=== PATIENT | male | born 1965 | race Caucasian/White ===

== ENCOUNTER → 2017-05-25 | Outpatient (CLI) | payer OTHER ==
[~2017-05-25] MED LIST: ATOR20TA PO; CALC-112 PO; CHOL500045 PO; CLON0.5T PO; HYDR-3307 PO; HYDR200T PO; METO25TA35 PO; NITR4.1S2 PO; PRAS10TA4 PO; PRED1TAB PO
== END | disposition home or self-care (01) ==
LOC: CFH 10:51
PROVIDERS: ATTEND Internal Medicine Cardiovascular Disease
DX: I10 Essential (primary) hypertension (principal); I25.10 Atherosclerotic heart disease of native coronary artery without angina pectoris; I25.2 Old myocardial infarction
CPT/HCPCS: 93306

== ENCOUNTER 2018-02-16 11:32 | Observation (INO) | payer BC ==
[~2018-02-16] VITALS: Ht 177.8 cm; Wt 62.1 kg
[~2018-02-16 11:32] MED LIST changes: -HYDR200T PO; +HYDR200T72 PO
[2018-02-16] MEDS ORDERED: MIDAZOLAM 1 MG/ML, 2ML ONE (12:07)
[2018-02-16] MEDS ORDERED: FENTANYL PF 250 MCG/5ML ONE (12:07)
[2018-02-16] MEDS ORDERED: WATER-INJECTION,STERILE 10 ML IV ONE ×2 (12:08)
[2018-02-16] MEDS ORDERED: PROPOFOL 10 MG/ML, 20ML ONE (12:08)
[2018-02-16] MEDS ORDERED: CEFAZOLIN 1,000 MG ONE ×2 (12:09)
[2018-02-16] MEDS: LACTATED RINGERS 1,000 ML IV SCH ×2 (12:19→12:35)
[2018-02-16] MEDS ORDERED: NIAC500T9 PO (12:26)
[2018-02-16] MEDS ORDERED: ATOR40TA78 PO (12:26)
[2018-02-16] MEDS ORDERED: DIVA500T2 PO (12:26)
[2018-02-16] MEDS ORDERED: DOXA1TAB2 PO (12:26)
[2018-02-16] MEDS ORDERED: [UNRECOGNIZED DRUG - CODE] PO (12:26)
[2018-02-16] MEDS ORDERED: POTA8TAB6 PO (12:26)
[2018-02-16] MEDS ORDERED: ALBU18HF INH (12:26)
[2018-02-16] MEDS ORDERED: ASPI-496 PO (12:26)
[2018-02-16] MEDS ORDERED: CHLO25TA PO (12:26)
[2018-02-16] MEDS ORDERED: OMEG1CAP6 PO (12:26)
[2018-02-16] MEDS ORDERED: HYDROCORTISONE 100 MG INJ. ONE (12:42)
[2018-02-16] MEDS ORDERED: HYDROmorphone 1 MG/ML, 1ML IV PRN (13:00)
[2018-02-16] MEDS ORDERED: ONDANSETRON ODT 8 MG PO PRN (13:00)
[2018-02-16] MEDS ORDERED: PROMETHAZINE 12.5 MG SUPP PR PRN (13:00)
[2018-02-16] MEDS ORDERED: OXYcodone 5 MG/5 ML ORAL.SOL UDC PO PRN (13:00)
[2018-02-16] MEDS ORDERED: PROMETHAZINE 25 MG SUPP PR PRN (13:00)
[2018-02-16] MEDS ORDERED: PROMETHAZINE 25 MG/ML, 1ML IM PRN ×2 (13:00)
[2018-02-16] MEDS ORDERED: MORPHINE SULFATE 4 MG/ML, 1ML IVPush PRN ×2 (13:00→16:00)
[2018-02-16] MEDS ORDERED: ONDANSETRON 2MG/ML, 2ML IV PRN ×2 (13:00→16:00)
[2018-02-16] MEDS ORDERED: ACETAMINOPHEN 325 MG TABLET PO PRN (13:00)
[2018-02-16] MEDS ORDERED: MEPERIDINE/PF 25MG/0.5ML IVPush PRN (13:00)
[2018-02-16] MEDS ORDERED: PROMETHAZINE 25 MG/ML, 1ML IV PRN (13:00)
[2018-02-16] MEDS ORDERED: LABETALOL 5MG/ML, 20ML IV PRN (13:00)
[2018-02-16] MEDS ORDERED: hydrALAzine 20 MG/ML, 1ML IV PRN (13:00)
[2018-02-16] MEDS ORDERED: FENTANYL PF 100 MCG/2ML IV PRN (13:00)
[2018-02-16] MEDS ORDERED: ACETAMINOPHEN 650 MG/20.3 ML UDC ONE (14:18)
[2018-02-16] MEDS ORDERED: FENTANYL PF 100 MCG/2ML ONE (14:18)
[2018-02-16] MEDS ORDERED: OXYcodone 5 MG/5 ML ORAL.SOL UDC ONE (14:18)
[2018-02-16] MEDS ORDERED: MEPERIDINE/PF 50 MG/ML ONE (14:35)
[2018-02-16] MEDS: D5%-0.45NACL+KCL 20MEQ 1,000 ML IV SCH (15:55)
[2018-02-16] MEDS ORDERED: OPIUM/BELLADONNA SUPP.RECT 16.2-30 MG PR PRN (16:00)
[2018-02-16] MEDS ORDERED: HYDROcodone/APAP 10/325 MG TABLET PO PRN (16:00)
[2018-02-16] MEDS ORDERED: ALBUTEROL SULFATE 2.5 MG/3 ML HHN PRN (16:00)
[2018-02-16 18:00] VITALS: BP 119/75
[2018-02-16] MEDS: METOPROLOL TARTRATE 25 MG TABLET PO SCH (18:00)
[2018-02-16 20:00] VITALS: BP 121/63
[2018-02-16] MEDS ORDERED: ATORVASTATIN 40 MG TABLET PO SCH (21:00)
[2018-02-16] MEDS ORDERED: OMEGA-3/FISH OIL CAPSULE PO SCH (21:00)
[2018-02-16] MEDS: DIVALPROEX 500 MG TABLET.DR PO SCH (21:43)
[2018-02-16] MEDS ORDERED: BISACODYL 10 MG SUPP PR PRN (22:30)
[2018-02-17 01:01] VITALS: BP 123/80
[2018-02-17] MEDS: D5%-0.45NACL+KCL 20MEQ 1,000 ML IV SCH (02:42)
[2018-02-17 04:03] VITALS: BP 130/77
[2018-02-17] MEDS: METOPROLOL TARTRATE 25 MG TABLET PO SCH (05:39)
[2018-02-17 07:57] VITALS: BP 124/65
[2018-02-17] MEDS: DIVALPROEX 500 MG TABLET.DR PO SCH (08:39)
[2018-02-17] MEDS ORDERED: NIACIN 500 MG TABLET.ER PO SCH (09:00)
[2018-02-17] MEDS ORDERED: POTASSIUM CHLORIDE 8 MEQ TABLET.ER PO SCH (09:00)
[2018-02-17] MEDS ORDERED: CHLORTHALIDONE 25 MG TABLET PO SCH (09:00)
== END 2018-02-17 10:35 | disposition home or self-care (01) ==
LOC: OUT 11:32 → 4NOR 15:17 → OUT 16:39 → 4NOR 16:40 → DCLOUNGE 02-17 10:20
PROVIDERS: ADMIT Urology; ATTEND Urology
DX: N40.1 Benign prostatic hyperplasia with lower urinary tract symptoms (principal); N32.0 Bladder-neck obstruction; N13.8 Other obstructive and reflux uropathy
CPT/HCPCS: 52601; 88305; 93005; 96374; G0378; J0690; J1720; J2250; J2704; J3010; J3480; J7120; J7512